=== PATIENT | female | born 1935 | race Caucasian/White ===

== ENCOUNTER 2019-05-29 14:09 | Inpatient (IN) ==
[2019-05-29] MEDS ORDERED: TYLENOL PO PRN ×2 (14:33→20:15)
[2019-05-29] MEDS ORDERED: NS 1,000 ML IV SCH (14:45)
[2019-05-29 16:28] LABS: BASO# 0.05 X1000 (0.0-0.2); BASO% 0.5 % (0.0-0.8); EOS# 0.15 X1000 (0.0-0.7); EOS% 1.6 % (0.0-10.0); HEMATOCRIT 38.2 % (37.0-47.0); IMM GRAN# 0.02 X1000 (0.0-0.04); IMM GRAN% 0.2 % (0.0-0.5); LYMPH# 1.15 X1000 (1.2-3.4); LYMPH% 11.9 % (20.5-51.1); MCH 30.6 PG (27-31); MCHC 31.4 g/dL (33-37); MCV 97.4 FL (81-99); MONO# 1.32 X1000 (0.11-0.59); MONO% 13.7 % (1.7-9.3); NEUT# 6.94 X1000 (1.4-6.5); NEUT% 72.1 % (42.2-75.2); PLT 252 X1000 (130-400); RBC 3.92 XMIL (4.2-5.4); WBC 9.63 X1000 (4.8-10.8)
[2019-05-29 16:41] LABS: ALB/GLOB RATIO 1.1; ALBUMIN 4.1 g/dL (3.5-5.0); CALCIUM 10.3 mg/dL (8.8-10.2); CREATININE 1.4 mg/dL (0.5-0.9); POTASSIUM 4.7 mmol/L (3.5-5.1); TOTAL BILIRUBIN 0.42 mg/dL (0.20-1.00); TOTAL PROTEIN 7.7 g/dL (6.3-8.3)
[2019-05-29 16:51] LABS: LYMPHS 14 % (21-51); MONO 11 % (1-9); SEGS 74 % (42-75)
[2019-05-29 17:40] LABS: INR 2.29; PROTIME 25.8 Seconds (11.0-16.0); PTT 40.7 Seconds (22.3-41.8)
[2019-05-29 18:14] LABS: URINE SOURCE CLEAN CATCH
[2019-05-29 18:21] LABS: BILIRUBIN URINE NEGATIVE (NEGATIVE); BLOOD URINE NEGATIVE (NEGATIVE); COLOR YELLOW; GLUCOSE URINE NEGATIVE (NEGATIVE); KETONE URINE NEGATIVE (NEGATIVE); LEUKOCYTES URINE LARGE (NEGATIVE); NITRITE URINE NEGATIVE (NEGATIVE); PH URINE 5.5; PROTEIN URINE TRACE mg/dL (NEGATIVE); SP GRAVITY URINE 1.022; TURBIDITY URINE CLEAR (CLEAR); UROBILINOGEN URINE NORMAL (NORMAL)
[2019-05-29 18:23] LABS: UR EPITHELIAL CELLS <10 /HPF (<10); URINE BACTERIA NEGATIVE /HPF; URINE RBC <10 /HPF (<10); URINE WBC 20-40 /HPF (<10)
[2019-05-29] MEDS ORDERED: ANTIVERT PO PRN (20:15)
[2019-05-29] MEDS ORDERED: NITROGLYCERIN SL PRN (20:15)
[2019-05-29] MEDS ORDERED: PHENERGAN PO PRN (20:15)
[2019-05-29] MEDS ORDERED: COUMADIN PO SCH (21:00)
[2019-05-29] MEDS ORDERED: LEVAQUIN 500 MG/D5W 500 MG/100 ML IVPB IV SCH (21:00)
--- NOTE | 2019-05-29 21:01 | Diag Imaging Result Doc PS360 ---
CT THORAX W/O CONTRAST - 05/29/2019 INDICATION: Presumed lung CA/ hypoxia COMPARISON: 08/10/2018 FINDINGS: There is a moderate to large right pleural effusion. There is been worsening of the right infrahilar mass. There is moderate diffuse mediastinal lymphadenopathy similar to prior. There is near complete collapse of the right middle and lower lobes. There is some infiltrate in the right upper lobe. The left lung is grossly clear. Heart size is top normal. Advanced vascular disease of the left anterior descending coronary artery. No suspicious findings in the upper abdomen. There are moderate degenerative changes of the spine. No acute or suspicious bony lesion. IMPRESSION: Progression in the right infrahilar mass. Complete collapse of the right middle and lower lobes. Small infiltrate in the right upper lobe. Moderate to large right pleural effusion. This exam was performed using automated exposure control, adjustment of mA or kV according to patient size, and/or use of iterative reconstruction technique Electronically signed by Aly Pompa 05/29/2019 8:58 PM
[2019-05-29] MEDS: XOPENEX NEB INH PRN (21:11)
[2019-05-29] MEDS ORDERED: XANAX PO PRN (21:18)
--- NOTE | 2019-05-29 22:01 | HISTORY AND PHYSICAL ---
PRIMARY CARE PHYSICIAN: Dr. Ventura Rebollar. CHIEF COMPLAINT: Increasing shortness of breath and chest pain. HISTORY OF PRESENT ILLNESS: An 83-year-old white female with a complicated past medical history presents for evaluation of above-mentioned symptoms. Pertinent history of present illness began in January 2018. The patient was diagnosed with a pulmonary mass. The patient was referred to see Dr. Long in [place], [place]. Serial CT scan evaluations suggested an increase in size of this mass. Per report, discussion was held with patient's family. Because of her multiple medical conditions and advancing dementia, a definitive diagnosis with biopsy was not pursued. Palliative measures were then recommended. Since that time, patient has been attended to by family members. Overall, she has done reasonably well. Her dementia continues to advance. Over the course of the last month, she has developed increasing shortness of breath. Cough is present, but largely nonproductive. She has had chills but no fever. Energy level and p.o. intake continue to decline. Chest discomfort is increasing in frequency. Because of the progression of symptoms, the patient and her daughter presented to my office for further evaluation and management. Chest x-ray suggested a large right-sided effusion with associated atelectasis. Patient will be admitted to the hospital for full evaluation and management of this condition. PAST MEDICAL HISTORY: 1. Acute cholecystitis status post open cholecystectomy in the . 2. Allergic rhinitis. 3. Atrial fibrillation. 4. Status post bilateral cataract removals. 5. Chronic bronchitis. 6. Ischemic heart disease status post stent placement to the LAD in 2010. 7. History of a traumatic fracture of the right olecranon in 2014. 8. History of a benign common bile duct stricture. 9. Right pelvic kidney. 10. Constipation. 11. Depression. 12. Insomnia. 13. Dizziness. 14. Chronic lower extremity edema. 15. Reflux disease. 16. Hypertension. 17. Hypertriglyceridemia. 18. Hearing loss. 19. Hyperlipidemia. 20. History of resection of a benign laryngeal tumor in the . 21. Chronic low back pain. 22. History of abnormal mammogram in 2009 status post negative biopsy. 23. Dementia. 24. Chronic intermittent nausea. 25. Osteopenia. 26. Palpitations. 27. History of a traumatic left pubic rami fracture in 2014. 28. History of acute stroke in 2016. 29. Thrombocytopenia. CURRENT MEDICATIONS: 1. Aspirin 81 mg daily. 2. Atorvastatin 40 mg at bedtime. 3. Benefiber daily. 4. Carvedilol 3.125 mg daily. 5. Coenzyme Q10 100 mg daily. 6. Coumadin 5 mg on Tuesday, Tuesday, Tuesday and 2.5 mg on Tuesday, , Tuesday and Tuesday. 7. Fluticasone nasal spray as needed. 8. Imdur 30 mg daily. 9. Lasix 20 mg 1/2 tablet daily except 1 tablet on Tuesday and Tuesday. 10. Meclizine 25 mg 1/2 tablet twice daily as needed. 11. Melatonin 3 mg at bedtime. 12. Mucinex DM twice daily as needed. 13. Nitroglycerin 0.4 mg sublingual as needed. 14. Pantoprazole 40 mg daily as needed. 15. Phenergan 25 mg 1/2 to 1 tablet every 6 hours as needed. 16. Singulair 10 mg daily as needed. 17. Xopenex 1.25 mg per 3 mL every 6 hours as needed. 18. Xyzal 5 mg daily as needed. ALLERGIES: Patient states she is allergic to codeine which causes itching, Eliquis which causes nausea, Xarelto which causes nausea, Zocor which causes myalgias, Zoloft and penicillin. SOCIAL HISTORY: Patient is a former smoker. She smoked 1/2 pack per day for 12 years. She stopped in 1971. She denies alcohol or illicit drug use. She is retired. She is unable to exercise routinely. FAMILY HISTORY: Patient's father passed at age 42 secondary to complications of an accident. Patient's mother passed at age 89 secondary to complications of Alzheimer dementia. History of cirrhosis of the liver, hyperlipidemia, COPD, coronary artery disease, osteoarthritis, breast cancer, and irritable bowel syndrome are present in siblings. REVIEW OF SYSTEMS: A 12 point review of systems was performed. Pertinent positives and negatives noted in history present illness. PHYSICAL EXAMINATION: VITAL SIGNS: Temperature 97.4 degrees, heart rate 89, respirations 17, blood pressure is 116/96. GENERAL: Chronically ill appearing, no acute distress. HEENT: Normocephalic, atraumatic. Pupils equal, round, reactive to light. Extraocular muscles intact. Sclerae anicteric. [place] conjunctivae. Oral and nasopharynx clear without exudate. NECK: Supple. No lymphadenopathy. No thyromegaly. No bruits auscultated. CARDIOVASCULAR: Regular rate and rhythm. No significant murmurs, rubs, or gallops. PULMONARY: Decreased breath sounds at the right lower and middle lung aleman. No significant wheezing. ABDOMEN: Soft, nontender, nondistended. Positive bowel sounds. EXTREMITIES: Moves all extremities well. No significant clubbing, cyanosis, or edema. NEUROLOGIC: Cranial nerves 2 through 12 grossly intact. Motor and sensory grossly intact. PSYCHOLOGIC: Appropriate. LABORATORY DATA: White blood cell count 9.63, hemoglobin 12.0, hematocrit 38.2, platelet count 252,000. PT 25.8, INR is 2.29, PTT 40.7. Sodium 132, potassium 4.7, chloride 94, bicarb 20, BUN 22, creatinine 1.4, glucose 125, calcium 10.3, total bilirubin 0.42, total protein 7.7, albumin 4.1, alkaline phosphatase 64, AST 25, ALT 14. Urinalysis revealed large leukocytes, no bacteria present. CT scan of the chest revealed progression of the right infrahilar mass. Complete collapse of the right middle and lower lobes. Small infiltrate in the right upper lobe. Moderate to large right pleural effusion. ASSESSMENT AND PLAN: An 83-year-old white female with a complicated past medical history as noted presents for evaluation of increasing shortness of breath and chest discomfort. As above, patient's family previously chose not to pursue definitive diagnosis with bronchoscopy and biopsy secondary to her multiple medical conditions. CT scan suggests progression of her disease as well as a large pleural effusion. Patient will be admitted to the hospital for full evaluation and management of each of these conditions. 1. Admit to General Medicine. 2. Lung cancer, not otherwise specified-as above, we have discussed this in great detail on multiple occasions with patient's daughter. She has chosen not to pursue any further intervention secondary to her multiple medical problems as well as her advanced dementia. At this point, I agree with that assessment. We discussed moving towards a more palliative approach, however she is unsure whether her family will agree. At this point, we will continue supportive care while hospitalized. We will hold off on thoracentesis for now as this likely is malignant and will return. If patient's family chooses not to pursue palliative measures, we will consider whether thoracentesis and pleurodesis is necessary. 3. Pneumonia-patient does appear to have a small infiltrate per CT scan. We will start patient on Levaquin therapy. We will continue Xopenex. We will encourage incentive spirometry. 4. Shortness of breath-patient's oxygen saturations are acceptable at rest. She likely desaturates with any movement. We will start oxygen per protocol, especially for palliation. 5. Pleural effusion-as above, this likely is malignant. At this point, if palliative measures are pursued, no thoracentesis will be indicated. If a more aggressive approach is decided upon by patient's family, we will consider whether a thoracentesis and pleurodesis is necessary. 6. Chest pain-patient has a longstanding history of heart disease. She also has a pulmonary mass with effusion. At this point, I suspect this is pulmonary in etiology. We will continue symptomatic management. 7. Hypertension-we will continue patient's home medications. 8. Profound weakness-this likely is a consequence of her advanced lung malignancy. We will remain aware. 9. Insomnia-we will start low-dose trazodone therapy. 10. Hyperlipidemia-we will continue atorvastatin therapy. 11. Anticoagulation-we will continue Coumadin therapy. 12. Fluid, electrolytes, nutrition. Will monitor electrolytes. Normal saline at KVO. Cardiac prudent diet. 13. Prophylaxis. Patient will be continued on Coumadin therapy. cc: Ventura Rebollar MD
[2019-05-29] MEDS ORDERED: GEODON IM ONE (22:12)
[2019-05-29] MEDS ORDERED: STERILE WATER INJ. INJ ONE (22:12)
[2019-05-29] MEDS: LEVAQUIN PO SCH (23:06)
[2019-05-29] MEDS: LIPITOR PO SCH (23:07)
[2019-05-29] MEDS: PRILOSEC PO SCH (23:07)
[2019-05-29] MEDS: PERICOLACE PO SCH (23:07)
[2019-05-30] MEDS: XOPENEX NEB INH PRN ×3 (03:11→16:16)
[2019-05-30] MEDS: ASPIRIN PO SCH (08:29)
[2019-05-30] MEDS: LEVAQUIN PO SCH (08:29)
[2019-05-30] MEDS: IMDUR PO SCH (08:29)
[2019-05-30] MEDS: MIRALAX PO SCH (08:29)
[2019-05-30] MEDS: PERICOLACE PO SCH (08:29)
[2019-05-30] MEDS: COREG PO SCH (08:29)
--- NOTE | 2019-05-30 17:01 | PROGRESS NOTE ---
DATE: 05/30/2019 SUBJECTIVE: The patient was admitted yesterday with progressive shortness of breath. CT scan confirmed progression of her underlying lung cancer as well as a large right-sided pleural effusion and mild infiltrate. Patient was started on antibiotic intervention. This morning, upon my arrival, patient remained quite confused. She denied overt symptoms including nausea, vomiting, fevers, or chills. QT. She notes some shortness of breath, with activity Dr. Reyna was consulted in regards to options for management of the large pleural effusion and pulmonary mass. OBJECTIVE: T-max 98.2 degrees, heart rate 89-113, respirations 14 to 20, blood pressure 116- 163/67-96.General: Chronically ill appearing, no acute distress. Cardiovascular: Regular rate and rhythm. No significant murmurs, rubs, or gallops. Pulmonary: Decreased breath sounds in the right lower lung field. Abdomen: Soft, nontender, nondistended. Positive bowel sounds. Extremities: Moves all extremities well. No significant clubbing, cyanosis, or edema. Dermatologic: Evaluation reveals no evidence of rash. LABORATORY DATA: None. ASSESSMENT AND PLAN: 1. Presumed lung cancer-this appears to have progressed. As described in history and physical examination, the patient's family deferred aggressive intervention approximately a year and a half ago. At present time, patient does have an enlarging mass as well as a large pleural effusion. Dr. Reyna was consulted for potential palliative options. PleurX catheter has been placed presented as a potential intervention. The patient's family will consider. 2. Pneumonia-patient was noted to have a small infiltrate per CT scan. She is treated with Levaquin and Xopenex therapy. She is having no evidence of fevers and chills. 3. Shortness of breath-this likely is a consequence of her large pleural effusion. Thus far, she is not tolerating oxygen as she removes this frequently. We will continue supportive care for now. 4. Pleural effusion-this is likely malignant. We will consider PleurX intervention as noted. 5. Chest discomfort-this likely is a consequence of underlying pulmonary disease. We will continue supportive care. She has seen her carbonation tester within the last year to year and a half. He recommended no further cardiac interventions be pursued. 6. Hypertension - The patient's blood pressure is controlled on her current regimen. 7. Profound weakness-this likely is a consequence of advancing lung related malignancy. We will encourage activity. 8. Insomnia- patient was started on as needed Xanax last night. Symptoms are borderline controlled. 9. Hyperlipidemia-we will continue atorvastatin therapy. 10. Anticoagulation-we will continue Coumadin therapy. 11. Disposition. At this point, patient continues to require detention care in a hospital setting. We will plan discharge home once appropriate. cc: Ventura Rebollar MD
--- NOTE | 2019-05-30 19:58 | PULMONOLOGY CONSULTATION ---
DATE: 05/30/2019 REQUESTING CLINICIAN: Dr. Ventura Rebollar. REASON FOR CONSULTATION: Lung cancer. HISTORY OF PRESENT ILLNESS: Ms. Dewitt is an 83-year-old white female with a remote history of tobacco use, dementia, with a 3 cm lung mass identified on CT scan 12/20/2017. The patient was referred to Dr. Bradford Long, but due to her underlying dementia, no biopsy was performed. The patient underwent follow-up CT scan 8 months later on 08/10/2018, which revealed slight increase in size in the hilar mass along with increasing subcarinal lymphadenopathy. The patient was brought to Dr. Rebollar' office due to increasing shortness of breath. CT scan of the thorax was performed, which revealed a new moderate to large right-sided pleural effusion with increase in right hilar mass and significant consolidation of the lung. The patient is a poor historian. She does not know why she is in the hospital. She reports she is here to visit her brother. PAST MEDICAL HISTORY: 1. Lung cancer as per above. 2. Dementia. 3. Coronary artery disease with prior stent placement. 4. Atrial fibrillation. 5. Chronic insomnia. 6. Hypertension. 7. Chronic lower extremity edema. 8. Remote history of pharyngeal tumor status post resection. It was deemed benign. History of stroke. SOCIAL HISTORY: Remote history of tobacco use. No alcohol use. She has an attentive family. FAMILY HISTORY: Notable for cirrhosis, Alzheimer disease, breast cancer, and coronary artery disease. REVIEW OF SYSTEMS: Limited. Patient indicates she does get short of breath with exertion. She otherwise is asymptomatic. PHYSICAL EXAMINATION: General: Reveals an overweight white female resting comfortably and in no distress. Vital signs: BP 135/91, heart rate 95, respiratory rate 14, oxygen saturation 95% on room air. HEENT: Pupils are equal and reactive. Oropharynx appears clear. Neck: Supple. Chest: Reveals significant decreased breath sounds in the right hemithorax. Cardiac: S1-S2. Abdomen: Soft. Extremities: Without edema. LABORATORIES: INR is 2.25. White blood count 9.63, hemoglobin 12.2, platelet count 252,000. Sodium 132, potassium 4.7, chloride 97, bicarbonate 20, BUN 22, creatinine 1.4, glucose 125, calcium 10.3. CEA level 2.1. IMPRESSION: An 84-year-old with lung cancer (not biopsy-proven) with slow increasing mass size and adenopathy, who has now developed a significant pleural effusion and dyspnea. 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 Despite having a cancer for 2 years, she appears to be functional except for her dementia. She has not had a significant weight loss. She does not appear to be end-stage from the lung cancer standpoint. She would likely benefit from a PleurX catheter placement with intermittent drainage. However, this is not without issues given her dementia. If a catheter is not planned, then would consider pursuing hospice at this time. If a catheter is planned, I would recommend home health until she starts showing significant decline. PLAN: 1. Discussed case with Dr. Rebollar. 2. Consider PleurX catheter and/or hospice care. cc: MD Ventura Fuller MD
[2019-05-30] MEDS ORDERED: COUMADIN PO SCH (21:00)
[2019-05-31] MEDS: LIPITOR PO SCH ×2 (00:02→20:49)
[2019-05-31] MEDS: PERICOLACE PO SCH ×3 (00:02→20:49)
[2019-05-31] MEDS: PRILOSEC PO SCH ×2 (00:03→20:49)
[2019-05-31] MEDS: IMDUR PO SCH (09:38)
[2019-05-31] MEDS: ASPIRIN PO SCH (09:39)
[2019-05-31] MEDS: LEVAQUIN PO SCH (09:39)
[2019-05-31] MEDS: COREG PO SCH (09:39)
[2019-05-31] MEDS: MIRALAX PO SCH (09:40)
[2019-05-31] MEDS ORDERED: COUMADIN PO SCH (21:00)
--- NOTE | 2019-05-31 21:48 | PROGRESS NOTE ---
DATE: 05/31/2019 SUBJECTIVE: Upon arrival this morning, the patient was anxious. She was sitting upright. She demonstrated significant confusion. Throughout the day, unfortunately the patient has demonstrated further confusion. The patient's family states her p.o. intake has been minimal. Her daughter noted the significant episode of anxiety followed by nausea and vomiting. Upon arrival this evening, patient was walking in her room. She was noted to have profound shortness of breath and increased work of breathing. The patient was coached to sit in the bed and initiate oxygen therapy. With this, she did demonstrate some improvement, although she continued to have some tachypnea. There has been no evidence of fevers, chills, or overt chest discomfort during the course of the day. OBJECTIVE: Vital Signs: T-max 98.3, heart rate 65 to 102, respirations 14 to 24 blood pressure 116 to 146 over 66 to 97. General: Elderly. Mild respiratory distress. Cardiovascular: Irregularly irregular. Tachycardic. No significant murmurs, rubs, or gallops. Pulmonary: Decreased breath sounds. Throughout the vast majority of the right lung field. Adequate air movement on the left. Abdomen: Soft, nontender, nondistended. Positive bowel sounds. Extremities: Moves all extremities well. No significant clubbing, cyanosis, or edema. Dermatologic: Evaluation reveals no evidence of rash. LABORATORY DATA: None. ASSESSMENT AND PLAN: 1. Presumed lung cancer - Patient has a sizable mass with associated right middle and lower lobe collapse. Suspected malignant effusion is also present. I discussed the case in detail with patient's family. They will further discuss plans for palliation versus more aggressive intervention. The option for a PleurX catheter was presented; however concern for the patient number gently pulling the tube was made. 2. Pneumonia - Patient has a small infiltrate per CT scan. We will continue levofloxacin therapy. 3. Shortness of breath - This likely is a consequence of her pleural effusion. With nausea and vomiting, we also will need to remain concern for an aspiration pneumonitis with increasing symptoms this evening. We discussed the importance of determining the patient's code status in regards to ventilatory support. Patient's family is considering. We will continue oxygen per protocol. 4. Pleural effusion - As above, this most likely is malignant. Patient's family is considering a PleurX catheter; however it appears they are trending against this secondary to her significant dementia and likelihood of her inadvertently pulling the catheter. 5. Chest discomfort - The patient has longstanding coronary artery disease. She also has significant pulmonary disease as noted. We will remain aware that her chest discomfort could be a consequence of either. In the recent past, Cardiology has deferred any further intervention. We will continue supportive care. 6. Hypertension - We will continue patient's home medications. 7. Profound weakness - This likely is a consequence of her underlying malignancy. We will remain aware. 8. Insomnia - Patient is being treated with as-needed Xanax therapy. 9. Hyperlipidemia - We will continue atorvastatin therapy. 10. Anticoagulation - We will check INR in the a.m. 11. Prognosis - Unfortunately, the patient's long-term prognosis is poor. We discussed this in detail with 2 of patient's daughters. We discussed the importance of family discussion and unified decisions. At this point, the patient is a FULL CODE. Family is considering making patient is patient a NO CODE and pursuing palliative measures. 12. Disposition - At this point, the patient continues to require usp care in a hospital setting. We will plan discharge home once appropriate. cc: Ventura Rebollar MD
--- NOTE | 2019-06-01 01:32 | PULMONOLOGY PROGRESS NOTE ---
DATE: 05/31/2019 INTERIM HISTORY: The patient has had a difficult day. She has had a period of being cold and clammy associated with vomiting and increased work of breathing. She has been refusing oxygen and cardiac monitoring, but did begin using oxygen with her distress. OBJECTIVE: Vital Signs: The patient has been afebrile for the last 24 hours. Blood pressure 146/84, heart rate 102, respiratory rate 24, oxygen saturation 97% on supplemental oxygen. HEENT: Pupils are equal and reactive. Oropharynx appears clear. Neck: Supple. Chest: Reveals diffuse wheezing bilaterally. Cardiac: S1-S2 with a regular rhythm. Abdomen: Soft. Extremities: Without edema. IMPRESSION: An 83-year-old with: 1. Lung cancer. 2. Moderate to large right-sided pleural effusion. 3. Mediastinal adenopathy. 4. Acute hypoxemic respiratory failure. 5. Increased respiratory distress with wheezing today. DISCUSSION: An 83-year-old with problems outlined above. Clinically, she looks significantly worse than she did yesterday. She has had some respiratory decompensation with increased wheezing. This is unlikely due to rapid change in her pleural effusion and may be related to either cardiac ischemia and edema or could be related to aspiration associated with her emesis earlier today. I participated in a prolonged conference with Dr. Rebollar and her [address] Rebollar explained in great detail that her prognosis was poor and that she is unlikely to survive long-term and is unlikely to survive from aggressive intervention such as CPR and advanced cardiac life support. The daughters are having difficulty making a decision without everyone in the family discussing and agreeing on the same course of action. It is not clear that this can be achieved in this family. The family is trying to decide on: 1. The patient's code status. 2. Pleural catheter placement or no pleural catheter placement. 3. Hospice admission. PLAN: 1. Continue oxygen for hypoxemic respiratory failure. 2. PleurX catheter versus hospice care as outlined above. 3. Ongoing end-of-life discussions as outlined above. cc: MD Ventura Fuller MD
[2019-06-01] MEDS: LEVAQUIN PO SCH (10:37)
[2019-06-01] MEDS: MIRALAX PO SCH (10:37)
[2019-06-01] MEDS: PERICOLACE PO SCH (10:37)
[2019-06-01] MEDS: ASPIRIN PO SCH (10:37)
[2019-06-01] MEDS: COREG PO SCH (10:37)
[2019-06-01] MEDS: IMDUR PO SCH (10:37)
[2019-06-01 15:38] VITALS: BP 140/78
--- NOTE | 2019-06-01 21:14 | DISCHARGE SUMMARY ---
ADMISSION DATE: 05/29/2019 DISCHARGE DATE: 06/01/2019 ADMISSION DIAGNOSES: 1. Increasing shortness of breath. 2. Chest pain. DISCHARGE DIAGNOSES: 1. Presumed lung cancer. 2. Pneumonia. 3. Shortness of breath, secondary to presumed lung cancer with associated pleural effusion and pneumonia. 4. Large pleural effusion, likely malignant. 5. Chest discomfort secondary to presumed pulmonary etiology. 6. Hypertension. 7. Profound weakness. 8. Insomnia, present on arrival. 9. Hyperlipidemia, present on arrival . 10. Anticoagulation, present on arrival. CONSULTATION: 1. Dr. Reyna with Pulmonary Medicine was consulted for further evaluation and management of presumed lung cancer with associated pleural effusion. 2. [facility] was consulted for further evaluation and management of presumed lung cancer. PROCEDURES: CT scan of the chest was performed on 05/29/2019 which revealed progression in the right infrahilar mass. Complete collapse of the right middle and lower lobes. Small infiltrate in the right upper lobe. Moderate to large right pleural effusion. HISTORY AND PHYSICAL EXAMINATION: See admit note. PHYSICAL EXAMINATION: Prior to discharge. Temperature 98.7 degrees, heart rate 123, respirations 20, blood pressure is 140/78. General: Chronically ill appearing, no acute distress. Cardiovascular: Slightly tachycardic, irregular regular, no significant murmurs, rubs, or gallops. Pulmonary: Decreased breath sounds throughout the right lower and middle lung field. Otherwise adequate air movement. Abdomen: Soft, nontender, nondistended. Positive bowel sounds. Extremities: Moves all extremities well. No significant clubbing, cyanosis, or edema. Dermatologic: Evaluation reveals no evidence of rash. LABORATORY DATA: Prior to discharge none. HOSPITAL COURSE: patient was admitted as per history and physical examination. Hospital course per condition is as follows. 1. Presumed lung cancer-pulmonary mass was diagnosed approximately 1-1/2 years ago. At that time, because of patient's multiple comorbidities including advanced coronary artery disease and advanced dementia, further evaluation and intervention was not pursued per the patient's family's request. Unfortunately, patient has developed a progression of this condition. CT scan again suggests the likelihood of a lung malignancy. With associated large pleural effusion and increasing shortness of breath, options were considered. As patient's confusion would not permit us to effectively use a PleurX catheter, the family wished to pursue hospice intervention. While hospitalized, patient had intermittent significant increase in shortness of breath. At time of discharge, she was stable with oxygen supplementation. Patient will be discharged home with [facility]. 2. Pneumonia-the patient was noted to have a small infiltrate per chest x-ray. She was treated with levofloxacin while hospitalized. She will complete 8 additional days as an outpatient. 3. Shortness of breath-this likely is a consequence of her underlying pneumonia, presumed lung cancer, and associated pleural effusion. With oxygen supplementation, patient has achieved stabilization. I anticipate with her underlying diagnosis, this likely will progress. 4. Pleural effusion-this likely is malignant. I discussed this in detail with patient's family. Because of her confusion, family was concerned that she would quickly pull a PleurX catheter if placed. For this reason, we will pursue palliative measures with hospice intervention. 5. Chest discomfort-this likely is pulmonary in etiology. She does, however, have extensive coronary artery disease. For now, we will continue supportive care. 6. Hypertension-patient's blood pressure remains reasonably controlled while hospitalized. We will continue her home regimen. 7. Profound weakness-this likely is a consequence of her underlying malignancy. We will encourage activity as tolerated. 8. Insomnia /anxiety-while hospitalized, as needed Xanax was initiated. The patient's family found this did improve her overall condition considerably. Patient will be discharged home with a new prescription. 9. Hyperlipidemia-patient was continued on atorvastatin therapy while hospitalized. 10. Anticoagulation-while hospitalized, patient's INR was therapeutic. With the addition of levofloxacin, patient will need to be rechecked in the near future. She has no evidence of bleeding. 11. Prognosis-patient's prognosis was discussed in great detail with patient and her family. Each understands the severity of her diagnosis. As above, patient will be discharged with hospice care. DISCHARGE CONDITION: Stable. DISPOSITION: Discharge to home with hospice. MEDICATIONS: 1. Acetaminophen 500 mg twice daily. 2. Protonix 40 mg at bedtime. 3. Levofloxacin 500 mg daily for 8 days. 4. Alprazolam 0.25 mg 1/2 to 1 tablet every 6 hours as needed. 5. Phenergan 25 mg every 6 hours as needed. 6. MiraLAX 17 g in 8 ounces of juice daily. 7. Antivert 25 mg every 8 hours as needed. 8. Atorvastatin 40 mg at bedtime. 9. Tylenol 650 mg every 4 hours as needed. 10. Aspirin 81 mg daily. 11. Tamara-Colace 1 tablet twice daily. 12. Imdur 30 mg daily. 13. Nitrostat 0.4 mg sublingual as needed. 14. Lasix 20 mg daily. 15. Carvedilol 3.125 mg daily. 16. Levalbuterol nebulizer every 6 hours as needed. 17. Warfarin 5 mg nightly on Tuesday and Tuesday and 2.5 mg nightly all additional days. FOLLOWUP: Patient is to follow up with me as arranged. Patient is to be admitted to hospice care. cc: Ventura Rebollar MD
--- NOTE | 2019-06-01 21:15 | PULMONOLOGY PROGRESS NOTE ---
DATE: 06/01/2019 SUBJECTIVE: Ms. Dewitt is sitting upright in the bed. She is confused somewhat. At the present time she denies any shortness of breath or any trouble breathing. She denies any fevers or chills. OBJECTIVE: Vital signs: Blood pressure is 151/89 with a heart rate of 106, respirations are 18- 20. Temperature is 97.8 degrees oral. Room air saturations are 95% to 96%, and O2 saturation on 3 L nasal cannula is 100%. HEENT: Head is normocephalic, atraumatic. Mucous membranes are moist. Neck is supple, with trachea midline. Cardiovascular: Irregularly irregular rate and rhythm. She is tachycardic. No murmurs. No gallop. S1 and S2 appreciated. She has no lower extremity edema. Peripheral pulses are palpable x4 extremities. Pulmonary: Breath sounds are decreased throughout the right side. She has good air movement on the left. Chest rises and falls symmetric with respiration. Chest wall is nontender to palpation. Gastrointestinal: Abdomen is soft, nontender, nondistended. Bowel sounds in all 4 quadrants. Skin warm and dry. ASSESSMENT: 1. Lung cancer. 2. Moderate to large right-sided pleural effusion. 3. Acute hypoxemic respiratory failure. 4. Hypertension. PLAN: We will continue supplemental oxygen. Continue with her current medication regimen per her PCP. Code status: The patient is a Do Not Resuscitate/Allow Natural level 1. Dictated by FILIBERTO Lo for Yordy Reyna MD cc: FILIBERTO Lo MD Scott A. Matthews, MD MTDD
== END 2019-06-01 18:22 | disposition hospice, home (50) | DRG 180 ==
LOC: DIRADM 14:09 → 1N 14:34
PROVIDERS: ADMIT Internal Medicine; ATTEND Internal Medicine